=== PATIENT | female | born 1930 | race Caucasian/White ===

== ENCOUNTER 2017-12-22 12:54 | Emergency (ER) | payer OTHER, BC ==
[2017-12-22 14:10] VITALS: BMI 19.3
--- NOTE | 2017-12-22 14:51 | PDOC ---
History of Present Illness - General Chief Complaint: Pain Stated Complaint: ABD PAIN Time Seen by Provider: 12/22/17 13:02 History Source: Patient, Other (knife glazer) Exam Limitations: Dementia - History of Present Illness Travel History: No Initial Comments: 12/22/17 15:30 87-year-old female brought in by home health aide for evaluation of episodic abdominal pain which was noted this morning upon awakening. Patient has history of diabetes but staff denies vomiting, change in appetite, change in urine pattern, or abnormal glucose reading (120 this morning). Patient has had no recent illness, recent change in medications, recent change in bowel pattern, or rash. Patient's son called the ambulance since he was concerned that she was a diabetic with abdominal pain. Timing/Duration: reports: resolved prior to arrival Quality: reports: mild, cramping Abdominal Pain Onset Location: reports: LLQ, suprapubic Pain Radiation: reports: no radiation Activities at Onset: reports: none Aggravating Factors: improves with: None Alleviating Factors: improves with: None Past History - Travel Traveled outside of the country in the last 30 days: No - Past Medical History Allergies/Adverse Reactions: Allergies Allergy/AdvReac Type Severity Reaction Status Date / Time No Known Allergies Allergy Verified 01/05/16 15:56 Home Medications: Ambulatory Orders Atorvastatin Ca [Lipitor] 20 mg PO HS 02/16/13 Levothyroxine [Synthroid -] 25 mcg PO DAILY 02/16/13 Glimepiride 2 mg PO DAILY 07/15/13 Levothyroxine [Synthroid -] 75 mcg PO DAILY 07/15/13 Aspirin Coated [Ecotrin -] 81 mg PO DAILY #30 tablet.ec 07/19/13 Levofloxacin [Levaquin] 750 mg PO DAILY #5 tablet 01/08/16 Nitrofurantoin Monohyd/M-Cryst [Macrobid -] 100 mg PO BID #10 capsule 12/22/17 Cardiac Disorders: Yes (HTN) COPD: No Diabetes: Yes Hypercholesterolemia: Yes Thyroid Disease: Yes - Immunization History Immunization Up to Date: Yes - Suicide/Smoking/Psychosocial Hx Smoking Status: No Smoking History: Never smoked Have you smoked in the past 12 months: No Number of Cigarettes Smoked Daily: 0 If you are a former smoker, when did you quit?: 2009 Cigars Per Day: 0 Information on smoking cessation initiated: No Hx Alcohol Use: No Drug/Substance Use Hx: No Substance Use Type: None Hx Substance Use Treatment: No Patient Lives Alone: No Lives with/in: knife glazer Abd/GI Specific PMHX - Complaint Specific PMHX Colitis: No Diverticulitis: No Review of Systems - Review of Systems Able to Perform ROS?: No Constitutional: No: Symptoms Reported HEENTM: No: Symptoms Reported Respiratory: No: Symptoms reported Cardiac (ROS): No: Symptoms Reported ABD/GI: Yes: Abdominal cramping. No: Constipated, Diarrhea, Nausea, Poor Appetite, Poor Fluid Intake, Vomiting : No: Symptoms Reported Musculoskeletal: No: Symptoms Reported Integumentary: No: Symptoms Reported Neurological: No: Symptoms reported Hematologic/Lymphatic: No: Symptoms Reported *Physical Exam - Vital Signs Last Vital Signs Temp Pulse Resp BP Pulse Ox 97.6 F 60 18 180/81 100 12/22/17 13:00 12/22/17 13:00 12/22/17 13:00 12/22/17 13:00 12/22/17 13:00 - Physical Exam General Appearance: Yes: Nourished, Appropriately Dressed. No: Apparent Distress HEENT: negative: Pale Conjunctivae Neck: positive: Supple Respiratory/Chest: positive: Lungs Clear, Normal Breath Sounds. negative: Respiratory Distress, Accessory Muscle Use Cardiovascular: positive: Regular Rhythm, Regular Rate. negative: Murmur Gastrointestinal/Abdominal: positive: Normal Bowel Sounds, Soft. negative: Distended, Guarding, Rebound, Tenderness, Hernia, Mass Musculoskeletal: negative: CVA Tenderness Extremity: positive: Normal Capillary Refill. negative: Pedal Edema Integumentary: positive: Normal Color, Warm, Moist Neurologic: positive: Normal Mood/Affect, Motor Strength 5/5 ED Treatment Course - LABORATORY CBC & Chemistry Diagram: 12/22/17 15:26 12/22/17 15:26 - RADIOLOGY Radiology Studies Ordered: Category Date Time Status KUB (KID UR & BLAD) [RAD] Stat Radiology 12/22/17 14:32 Ordered Medical Decision Making - Medical Decision Making 12/22/17 14:58 Patient here for evaluation of abdominal pain which she stated this morning upon awakening today. Patient currently denies any pain but son was concerned since she is a diabetic and so called the ambulance. Patient with normal vital signs and denies any fever or chills. Patient ordered for urine blood work and a by mouth challenge. 12/22/17 16:01 Laboratory Tests 12/22/17 15:26 WBC 9.5 Hgb 13.1 Hct 38.7 Plt Count 313 Neutrophils % 80.9 Laboratory Tests 12/22/17 15:26 Sodium 141 Potassium 4.5 Chloride 104 Carbon Dioxide 32 Anion Gap 5 L BUN 10 Creatinine 0.7 Creat Clearance w eGFR > 60 Random Glucose 220 H Calcium 9.3 Magnesium 2.0 AST 12 L ALT 19 Lipase 120 12/22/17 18:28 Patient remains asymptomatic. Son states patient ate dinner without difficulty. Awaiting urine. 12/22/17 18:29 *DC/Admit/Observation/Transfer Diagnosis at time of Disposition: UTI (urinary tract infection) - Discharge Dispostion Disposition: HOME Condition at time of disposition: Improved - Prescriptions Prescriptions: Nitrofurantoin Monohyd/M-Cryst [Macrobid -] 100 mg PO BID #10 capsule - Referrals - Patient Instructions Additional Instructions: Rest, drink lots of fluids: Teas, water, soups Avoid contact with others until fevers and symptoms resolved Lots of handwashing and good hygiene Continue [id number] medications for symptomatic relief Tylenol or Motrin for fever and pain Continue all of antibiotics until completed Followup with private physician in one week for repeat urinalysis/reevaluation Return to emergency department for worsened symptoms, fevers, dehydration - Post Discharge Activity
[2017-12-22] MEDS ORDERED: SODIUM CHLORIDE 500 ML IV STA (15:28)
[2017-12-22 15:46] LABS: BASO % 0.9 % (0-2.0); HEMATOCRIT 38.7 % (32.4-45.2); HEMOGLOBIN 13.1 GM/dL (10.7-15.3); LYMPH % 12.4 % (8-40); MCH 30.5 pg (25.7-33.7); MCHC 33.7 g/dl (32.0-36.0); MEAN CELL VOLUME 90.2 fl (80-96); MEAN PLT VOLUME 8.7 fl (7.5-11.1); MONO % 4.8 % (3.8-10.2); NEUT % 80.9 % (42.8-82.8); PLATELET COUNT 313 K/MM3 (134-434); RBC 4.29 M/mm3 (3.60-5.2); RDW 13.1 % (11.6-15.6); WHITE BLOOD COUNT 9.5 K/mm3 (4.0-10.0)
[2017-12-22 16:22] LABS: ALBUMIN 3.5 g/dl (3.4-5.0); ALK PHOS 62 U/L (45-117); ANION GAP 5 (8-16); BILIRUBIN,TOTAL 0.6 mg/dL (0.2-1.0); BLOOD UREA NITROGEN 10 mg/dL (7-18); CALCIUM 9.3 mg/dL (8.5-10.1); CHLORIDE 104 mmol/L (98-107); CO2 32 mmol/L (21-32); CREATININE 0.7 mg/dL (0.55-1.02); GLUCOSE,RANDOM 220 mg/dL (74-106); LIPASE 120 U/L (73-393); POTASSIUM 4.5 mmol/L (3.5-5.1); SGOT/AST 12 U/L (15-37); SGPT/ALT 19 U/L (12-78); SODIUM 141 mmol/L (136-145); TOT PROT 6.7 g/dl (6.4-8.2)
[2017-12-22 19:18] LABS: URINE APPEARANCE SLCLOUDY; URINE BILIRUBIN NEGATIVE (<2.0 mg/dL); URINE COLOR LTYELLOW; URINE GLUCOSE (UA) 2+ (NEGATIVE); URINE KETONE NEGATIVE (NEGATIVE); URINE NITRITE NEGATIVE (NEGATIVE); URINE PROTEIN NEGATIVE (NEGATIVE); URINE UROBILINOGEN NEGATIVE mg/dL (0.2-1.0)
[2017-12-22 19:25] LABS: URINE LEUK ESTERASE 1+ (NEGATIVE)
--- NOTE | 2017-12-22 19:28 | PDOC ---
*Physical Exam - Vital Signs Last Vital Signs Temp Pulse Resp BP Pulse Ox 97.6 F 60 18 180/81 100 12/22/17 13:00 12/22/17 13:00 12/22/17 13:00 12/22/17 13:00 12/22/17 13:00 ED Treatment Course - LABORATORY CBC & Chemistry Diagram: 12/22/17 15:26 12/22/17 15:26 - ADDITIONAL ORDERS Additional order review: Laboratory Results 12/22/17 12/22/17 18:30 15:26 Sodium 141 Potassium 4.5 Chloride 104 Carbon Dioxide 32 Anion Gap 5 L BUN 10 Creatinine 0.7 Creat Clearance w eGFR > 60 Random Glucose 220 H Calcium 9.3 Magnesium 2.0 Total Bilirubin 0.6 AST 12 L ALT 19 Alkaline Phosphatase 62 Total Protein 6.7 Albumin 3.5 Lipase 120 Urine Color Ltyellow Urine Appearance Slcloudy Urine pH 8.0 D Ur Specific [place] 1.008 Urine Protein Negative Urine Glucose (UA) 2+ H Urine Ketones Negative Urine Blood Negative Urine Nitrite Negative Urine Bilirubin Negative Urine Urobilinogen Negative Ur Leukocyte Esterase 1+ H 12/22/17 15:26 RBC 4.29 MCV 90.2 MCHC 33.7 RDW 13.1 MPV 8.7 Neutrophils % 80.9 Lymphocytes % 12.4 D Monocytes % 4.8 Eosinophils % 1.0 D Basophils % 0.9 - Medications Given in the ED: ED Medications Discontinued Medications Generic Name Dose Route Start Last Admin Trade Name Freq PRN Reason Stop Dose Admin Sodium Chloride 500 mls @ 500 mls/hr 12/22/17 15:28 12/22/17 16:20 Normal Saline - IV 12/22/17 16:27 500 mls/hr ASDIR STA Administration Medical Decision Making - Medical Decision Making 12/22/17 19:27 Sign out received from JOSE RAMON Castañeda Pertinent studies/lab/EKG/consults- UA pending Meds given- none Anticipated plan/disposition- d/c home pending UA results. 12/22/17 20:11 Urinalysis 1+ leuk esterase and 11 WBCs. Given patient's episodic abdominal pain and age I will treat with nitrofurantoin as an outpatient. I discussed the physical exam findings, ancillary test results and final diagnoses with the patient. I answered all of the patient's questions. The patient was satisfied with the care received and felt comfortable with the discharge plan and treatment plan. The patient will call their primary care physician within 24 hours to arrange follow-up and will return to the Emergency Department with any new, persistent or worsening symptoms. *DC/Admit/Observation/Transfer Diagnosis at time of Disposition: UTI (urinary tract infection) Qualifiers: Urinary tract infection type: site unspecified Hematuria presence: without hematuria Qualified Code(s): N39.0 - Urinary tract infection, site not specified - Discharge Dispostion Disposition: HOME Condition at time of disposition: Improved - Prescriptions Prescriptions: Nitrofurantoin Monohyd/M-Cryst [Macrobid -] 100 mg PO BID #10 capsule - Referrals - Patient Instructions Additional Instructions: Rest, drink lots of fluids: Teas, water, soups Avoid contact with others until fevers and symptoms resolved Lots of handwashing and good hygiene Continue [id number] medications for symptomatic relief Tylenol or Motrin for fever and pain Continue all of antibiotics until completed Followup with private physician in one week for repeat urinalysis/reevaluation Return to emergency department for worsened symptoms, fevers, dehydration - Post Discharge Activity
[2017-12-22 19:33] LABS: EPI CELLS RARE /HPF (FEW)
[2017-12-22 22:56] VITALS: BP 139/72; PULSE 84; TEMP 98.4
--- NOTE | 2018-01-01 12:14 | EKG ---
Test Reason : Blood Pressure : / mmHG Vent. Rate : 067 BPM Atrial Rate : 067 BPM P-R Int : 154 ms QRS Dur : 094 ms QT Int : 414 ms P-R-T Axes : 053 005 068 degrees QTc Int : 437 ms NORMAL SINUS RHYTHM WITH SINUS ARRHYTHMIA NONSPECIFIC T WAVE ABNORMALITY ABNORMAL ECG WHEN COMPARED WITH ECG OF 06-JAN-2016 10:51, T WAVE INVERSION NO LONGER EVIDENT IN INFERIOR LEADS Confirmed by GALINDO HERMOSILLO, ESCOBAR ([id number]) on 01/01/2018 12:14:03 PM Referred By: Confirmed By:ESCOBAR MEDLEY MD
== END 2017-12-22 22:30 | disposition home or self-care (01) ==
LOC: JER 12:54
PROC: 3E0337Z Introduction of Electrolytic and Water Balance Substance into Peripheral Vein, Percutaneous Approach (ICD-10-PCS; principal; 2017-12-22)
DX: N39.0 Urinary tract infection, site not specified (principal); I10 Essential (primary) hypertension; E11.9 Type 2 diabetes mellitus without complications; Z79.84 Long term (current) use of oral hypoglycemic drugs; E78.00 Pure hypercholesterolemia, unspecified; E07.9 Disorder of thyroid, unspecified
CPT/HCPCS: 36415; 74018-TC-FY; 80053; 81003; 81015; 83690; 83735; 85025; 87086; 93005; 93010; 96360; 99282-25; J7030